=== PATIENT | female | born 1980 | race Caucasian/White ===

== ENCOUNTER 2016-08-31 00:19 | Inpatient (IN) | payer OTHER ==
[~2016-08-31] VITALS: Ht 170.2 cm; Wt 94.9 kg
[~2016-08-31 00:19] MED LIST: ASPIR 8181 MG PO; GLUCOPHAGE500 MG PO; LANTUS100 UNIT/1 SQ; LIPITOR TAB 2020 MG PO; NEURONTIN 400400 MG PO; NORVASC 5 MG TAB5 MG PO; NOVOLOG100 UNIT/1 SQ; PERCOCET 5-3251 EACH PO; VITAMIN C 500500 MG PO
[2016-08-31] MEDS ORDERED: CLINDAMYCIN HC300 MG PO (01:20)
[2016-08-31] MEDS ORDERED: PLAVIX 75 MG TA75 MG PO (01:20)
[2016-08-31] MEDS ORDERED: ZOFRAN4 MG PO (01:20)
[2016-09-01 06:31] LABS: BUN/CREATININE RATIO 18 (0-10)
[2016-09-02 06:57] LABS: RED BLOOD COUNT 4.07 M/UL (4.00-5.10); WHITE BLOOD COUNT 7.2 K/UL (4.5-11.0)
[2016-09-02 07:19] LABS: BUN/CREATININE RATIO 24 (0-10)
--- NOTE | 2016-09-03 13:19 | NUR ---
PATIENT WAS SEEN BY DR. STEVEN AND ASSESSED WOUND. HAVE TO REDRESS WOUND ORDERED.
--- NOTE | 2016-09-03 18:32 | NUR ---
REPORTED TO DR. ZAMORA R/T PATIENT WAS TAKING A PILL THAT CAUSED HER TO COUGH A LOT EARLIER, THAT SHE REFUSED TO SHOW HER PILL ON HER OTHER HAND. THIS REPORT WAS FROM SPEECH THERAPIST, BIRGIT CHACON WHO WAS IN THE PATIENT ROOM AND WITNESSED THE ABOVE. RECEIVED INSTRUCTIONS FROM DR. ZAMORA TO INFORM PATIENT NOT TO TAKE MEDICATION THAT IS NOT PROVIDED BY THE HOSPITAL, THAT FOR SAFETY REASONS PATIENT HAS TO COMPLY WITH THE ABOVE, PROVIDED INSTRUCTIONS TO PATIENT THE IMPORTANCE OF TAKING MEDICATIONS PROVIDED BY THE HOSPITAL ONLY. THAT SHE STATED THE TYLENOL SHE HAS TAKEN WAS A DISPOSABLE ONE. SHE VERBALIZED SHE WILL NOT TAKE ANY OTHER MEDICATION THAT WAS NOT GIVEN TO HER, HERE AT THE HOSPITAL BY NURSES.
[2016-09-04 05:00] LABS: HEMOGLOBIN 12.1 gm/dl (12.3-15.3)
[2016-09-06] MEDS ORDERED: NORVASC10 MG PO (12:37)
[2016-09-06] MEDS ORDERED: ELIQUIS 5 MG TAB5 MG PO (12:37)
[2016-09-06] MEDS ORDERED: ASPIRIN CHEWABL81 MG PO (12:38)
[2016-09-06] MEDS ORDERED: LISINOPRIL5 MG PO (12:42)
== END 2016-09-06 17:49 | disposition home health service (06) | DRG 65 ==
LOC: M/S 00:19
PROVIDERS: Emergency Medicine; Legal Medicine; ADMIT Internal Medicine
DX: I63.9 Cerebral infarction, unspecified (principal); I69.354 Hemiplegia and hemiparesis following cerebral infarction affecting left non-dominant side; E11.9 Type 2 diabetes mellitus without complications; I16.0 Hypertensive urgency; E66.01 Morbid (severe) obesity due to excess calories; G62.9 Polyneuropathy, unspecified; M79.7 Fibromyalgia; J45.909 Unspecified asthma, uncomplicated; R47.81 Slurred speech; R13.10 Dysphagia, unspecified; Z91.14 Patient's other noncompliance with medication regimen; Z86.73 Personal history of transient ischemic attack (TIA), and cerebral infarction without residual deficits; Z68.32 Body mass index [BMI] 32.0-32.9, adult; Z88.5 Allergy status to narcotic agent; Z88.2 Allergy status to sulfonamides; Z88.8 Allergy status to other drugs, medicaments and biological substances; Z87.891 Personal history of nicotine dependence; Z79.82 Long term (current) use of aspirin; Z79.899 Other long term (current) drug therapy; Z79.4 Long term (current) use of insulin
CPT/HCPCS: ECHO; 36415; 70450; 70544; 70551; 74230; 80048; 80061; 81241; 82550; 82553; 82607; 82728; 82746; 82962; 83036; 83540; 84443; 84484; 85014; 85018; 85027; 85300; 85303; 85379; 85611; 85732; 86140; 92526; 92610; 92611-GN; 93005; 93306; 93880; 97116; 97535; G0379; J1650; J2060